=== PATIENT | female | born 1975 | race Two or more races ===

== ENCOUNTER 2021-01-05 06:25 | Inpatient (IN) | payer OTHER ==
[~2021-01-05] VITALS: Ht 152.4 cm; Wt 70.8 kg
[2021-01-05] MEDS ORDERED: MORPHINE SULFATE 4 MG/ML CPJ (NOT FOR IM USE) IV STA (06:51)
[2021-01-05 07:23] LABS: BASOPHILS % 0.9 % (0.0-2.0); EOSINOPHILS % 2.9 % (0.0-5.0); HEMOGLOBIN. 13.5 g/dL (12.0-16.0); LYMPHOCYTES % 36.4 % (20.0-50.0); MEAN CORPUSCULAR HEMOGLOBIN 26.4 pg (28.0-32.0); MEAN CORPUSCULAR VOLUME 82.4 fL (81.0-99.0); MEAN PLATELET VOLUME 8.2 fl (7.4-10.4); MONOCYTES % 10.4 % (2.0-8.0); NEUTROPHILS % 49.4 % (40.0-76.0); PLATELET 290 x1000/uL (130-400); RED BLOOD CELL COUNT 5.11 mill/uL (4.2-5.4); RED CELL DISTRIBUTION WIDTH 14.6 % (11.6-14.6)
[2021-01-05 07:35] LABS: CHLORIDE 101 mEq/L (98-107)
[2021-01-05] MEDS ORDERED: ASPIRIN 325MG EC TABLET PO ONE (10:30)
[2021-01-05] MEDS ORDERED: HYDROCODONE/ACETAMINOPHEN 5/325MG TABLET PO PRN (11:45)
[2021-01-05] MEDS ORDERED: MAGNESIUM/ALUMINUM HYDROXIDE/SIMETHICONE 30ML UDC PO PRN (11:45)
[2021-01-05] MEDS ORDERED: IPRATROPIUM/ALBUTEROL 0.5-3(2.5)MG/3ML NEB HHN PRN (11:45)
[2021-01-05] MEDS ORDERED: DIPHENHYDRAMINE 50MG/ML VIAL IV PRN (11:45)
[2021-01-05] MEDS ORDERED: CLONIDINE 0.1MG TABLET PO PRN (11:45)
[2021-01-05] MEDS ORDERED: DOCUSATE SODIUM 100MG CAPSULE PO PRN (11:45)
[2021-01-05] MEDS ORDERED: LORAZEPAM 2MG/ML CPJ IV PRN (11:45)
[2021-01-05] MEDS ORDERED: ACETAMINOPHEN 325MG TABLET PO PRN (11:45)
[2021-01-05] MEDS ORDERED: GUAIFENESIN 200MG/10ML SUGAR FREE UDC PO PRN (11:45)
[2021-01-05] MEDS ORDERED: MORPHINE SULFATE 2 MG/ML CPJ (NOT FOR IM USE) IV PRN (11:45)
[2021-01-05] MEDS ORDERED: ONDANSETRON HCL 4MG/2ML INJ IV PRN (11:45)
[2021-01-05] MEDS ORDERED: HYDRALAZINE 20MG/ML VIAL IV PRN (11:45)
[2021-01-05] MEDS: SODIUM CHLORIDE 0.9% INJ 3ML FLUSH IVF SCH ×2 (14:00→22:13)
[2021-01-05] MEDS ORDERED: ASPIRIN 325MG EC TABLET PO NR (14:45)
[2021-01-05] MEDS: ENOXAPARIN 40MG/0.4ML SYR SUBCUT SCH (16:20)
[2021-01-05 17:06] LABS: CREATINE KINASE 115 IU/L (26-192)
[2021-01-05 17:08] LABS: CREATINE KINASE MB FRACTION < 1.0 ng/mL (0.5-3.6)
[2021-01-05 23:04] VITALS: BP 131/94
[2021-01-05] MEDS ORDERED: VERA120C3 PO (23:30)
[2021-01-05] MEDS ORDERED: OMEP20TA2 PO (23:30)
[2021-01-05] MEDS ORDERED: CARV6.2548 PO (23:30)
[2021-01-05] MEDS ORDERED: IRBE300T17 PO (23:30)
[2021-01-05] MEDS ORDERED: CRES10 PO (23:30)
[2021-01-05] MEDS ORDERED: DIAZ5TAB4 PO (23:30)
[2021-01-05] MEDS ORDERED: ASPI-1497 PO (23:33)
[2021-01-06] VITALS (12 sets, daily range): BP systolic 109–148; BP diastolic 58–111
[2021-01-06] MEDS ORDERED: *PATIENT'S OWN MEDICATION STORAGE XX SCH (00:15)
[2021-01-06 00:23] LABS: CREATINE KINASE 99 IU/L (26-192)
[2021-01-06 00:24] LABS: CREATINE KINASE MB FRACTION < 1.0 ng/mL (0.5-3.6)
[2021-01-06] MEDS: SODIUM CHLORIDE 0.9% INJ 3ML FLUSH IVF SCH ×3 (05:11→22:00)
[2021-01-06] MEDS ORDERED: REGADENOSON 0.4 MG/5 ML IV ONE ×2 (08:15→09:13)
[2021-01-06 09:29] LABS: BASOPHILS % 0.8 % (0.0-2.0); EOSINOPHILS % 2.9 % (0.0-5.0); HEMATOCRIT. 43.9 % (36.0-48.0); HEMOGLOBIN. 14.2 g/dL (12.0-16.0); LYMPHOCYTES % 43.3 % (20.0-50.0); MEAN CORPUSCULAR HEMOGLOBIN 26.2 pg (28.0-32.0); MEAN CORPUSCULAR VOLUME 80.7 fL (81.0-99.0); MEAN PLATELET VOLUME 8.4 fl (7.4-10.4); MONOCYTES % 10.5 % (2.0-8.0); NEUTROPHILS % 42.5 % (40.0-76.0); PLATELET 293 x1000/uL (130-400); RED BLOOD CELL COUNT 5.44 mill/uL (4.2-5.4); RED CELL DISTRIBUTION WIDTH 14.3 % (11.6-14.6)
[2021-01-06 09:35] LABS: CHLORIDE 101 mEq/L (98-107)
[2021-01-06 09:43] LABS: LDL CHOLESTEROL 103 mg/dL (5-100)
[2021-01-06 09:44] LABS: HDL CHOLESTEROL 37 mg/dL (40-59); T4 FREE 0.89 ng/dL (0.76-1.46)
[2021-01-06] MEDS: ENOXAPARIN 40MG/0.4ML SYR SUBCUT SCH (12:46)
[2021-01-07] VITALS (8 sets, daily range): BP systolic 104–150; BP diastolic 73–114
[2021-01-07] MEDS: SODIUM CHLORIDE 0.9% INJ 3ML FLUSH IVF SCH (06:00)
[2021-01-07] MEDS: ENOXAPARIN 40MG/0.4ML SYR SUBCUT SCH (11:57)
== END 2021-01-07 15:12 | disposition home or self-care (01) | DRG 241 ==
LOC: ER 06:25 → EDBEDREQ 08:10 → MICUSO 10:18 → EDBEDREQ 10:29 → EDBEDREQTM 10:29 → 3WST 21:45
PROVIDERS: ADMIT Internal Medicine; ATTEND Internal Medicine
DX: K29.70 Gastritis, unspecified, without bleeding (principal); E78.5 Hyperlipidemia, unspecified; I10 Essential (primary) hypertension; R07.9 Chest pain, unspecified; J45.909 Unspecified asthma, uncomplicated; I25.2 Old myocardial infarction
CPT/HCPCS: 36415; 71045; 78452; 80053; 80061; 82550; 82553; 83036; 83880; 84439; 84443; 84484; 85025; 85379; 93005; 93306; 93970; 99285; A9500; J1200; J1650; J2270; J2405; J2785

== ENCOUNTER 2021-01-09 05:55 | Inpatient (IN) | payer OTHER ==
[~2021-01-09] VITALS: Ht 157.5 cm; Wt 68.0 kg
[~2021-01-09 05:55] MED LIST: ASPI-1497 PO; CARV6.2548 PO; CRES10 PO; DIAZ5TAB4 PO; IRBE300T17 PO; OMEP20TA2 PO; VERA120C3 PO
[2021-01-09] MEDS ORDERED: FAMOTIDINE 20MG/2ML VIAL IV STA (06:04)
[2021-01-09] MEDS ORDERED: ONDANSETRON HCL 4MG/2ML INJ IV STA (06:04)
[2021-01-09] MEDS ORDERED: MORPHINE SULFATE 4 MG/ML CPJ (NOT FOR IM USE) IV STA (06:04)
[2021-01-09] MEDS ORDERED: SODIUM CHLORIDE 0.9% 1,000 ML IV ONE (06:15)
[2021-01-09] MEDS ORDERED: MORPHINE SULFATE 2 MG/ML CPJ (NOT FOR IM USE) IV SCH (06:36)
[2021-01-09 06:42] LABS: HEMATOCRIT. 39.3 % (36.0-48.0); HEMOGLOBIN. 12.8 g/dL (12.0-16.0); MEAN CORPUSCULAR VOLUME 80.3 fL (81.0-99.0); MEAN PLATELET VOLUME 8.2 fl (7.4-10.4); MONOCYTES % 11.9 % (2.0-8.0); NEUTROPHILS % 50.1 % (40.0-76.0); PLATELET 283 x1000/uL (130-400); RED CELL DISTRIBUTION WIDTH 14.5 % (11.6-14.6)
[2021-01-09 06:49] LABS: CHLORIDE 101 mEq/L (98-107)
[2021-01-09 07:13] LABS: INR 1.1; PROTHROMBIN TIME 11.4 sec (9.6-11.0)
[2021-01-09 08:17] LABS: CLARITY URINE CLEAR (CLEAR); COLOR URINE YELLOW (YELLOW); KETONES URINE NEGATIVE (NEGATIVE); LEUKOCYTE ESTERASE URINE NEGATIVE (NEGATIVE); NITRITE URINE NEGATIVE (NEGATIVE); OCCULT BLOOD URINE NEGATIVE (NEGATIVE); PROTEIN URINE NEGATIVE (NEGATIVE); SPECIFIC GRAVITY URINE 1.009 (1.005-1.030)
[2021-01-09] MEDS ORDERED: ASPIRIN 325MG EC TABLET PO ONE (08:45)
[2021-01-09] MEDS ORDERED: ENOXAPARIN 60MG/0.6ML SYR SUBCUT ONE (10:30)
[2021-01-09] MEDS ORDERED: MORPHINE SULFATE 2 MG/ML CPJ (NOT FOR IM USE) IV PRN (15:15)
[2021-01-09] MEDS ORDERED: NITROGLYCERIN 0.4MG TABLET SL SL PRN (15:15)
[2021-01-09 15:28] LABS: CREATINE KINASE MB FRACTION 1.3 ng/mL (0.5-3.6)
[2021-01-09] MEDS ORDERED: NALOXONE HCL 0.4MG/ML VIAL IV PRN (15:30)
[2021-01-09] MEDS: AMLODIPINE 5MG TABLET PO SCH (16:32)
[2021-01-09] MEDS ORDERED: MAGNESIUM/ALUMINUM HYDROXIDE/SIMETHICONE 30ML UDC PO PRN (17:00)
[2021-01-09 18:38] LABS: *AMPHETAMINES SCREEN URINE NEGATIVE (NEGATIVE); *BARBITURATES SCREEN URINE NEGATIVE (NEGATIVE); *BENZODIAZEPINES SCREEN URINE NEGATIVE (NEGATIVE); *COCAINE SCREEN URINE NEGATIVE (NEGATIVE)
[2021-01-09 18:40] LABS: CANNABINOID URINE SCREEN NEGATIVE (NEGATIVE); METHADONE URINE SCREEN NEGATIVE (NEGATIVE); PHENCYCLIDINE URINE SCREEN NEGATIVE (NEGATIVE)
[2021-01-09 19:01] LABS: OPIATES URINE SCREEN PRESUMTIVE POSITIVE (NEGATIVE)
[2021-01-09] MEDS ORDERED: DOCUSATE SODIUM 100MG CAPSULE PO PRN (19:15)
[2021-01-09] MEDS ORDERED: ONDANSETRON HCL 4MG/2ML INJ IV PRN (19:15)
[2021-01-09] MEDS ORDERED: CLONIDINE 0.1MG TABLET PO PRN (19:15)
[2021-01-09] MEDS ORDERED: CALCIUM CARBONATE 500MG TABLET CHEW PO PRN (19:15)
[2021-01-09] MEDS ORDERED: LORAZEPAM 0.5MG TABLET PO PRN (19:15)
[2021-01-09] MEDS ORDERED: IPRATROPIUM/ALBUTEROL 0.5-3(2.5)MG/3ML NEB HHN PRN (19:15)
[2021-01-09] MEDS ORDERED: ACETAMINOPHEN 325MG TABLET PO PRN ×2 (19:15)
[2021-01-09] MEDS ORDERED: HYDROCODONE/ACETAMINOPHEN 5/325MG TABLET PO PRN (19:15)
[2021-01-09] MEDS ORDERED: POTASSIUM CHLORIDE 20MEQ TABLET SR PO NR (19:30)
[2021-01-09] MEDS: PANTOPRAZOLE SODIUM 40 MG/VIAL IV SCH (20:24)
[2021-01-09 22:43] VITALS: BP 128/84
[2021-01-09] MEDS: CARVEDILOL 3.125 MG TABLET PO SCH (23:28)
[2021-01-10] VITALS (11 sets, daily range): BP systolic 103–139; BP diastolic 60–99
[2021-01-10 06:41] LABS: BASOPHILS % 0.8 % (0.0-2.0); EOSINOPHILS % 3.5 % (0.0-5.0); HEMATOCRIT. 40.6 % (36.0-48.0); LYMPHOCYTES % 41.4 % (20.0-50.0); MEAN CORPUSCULAR HEMOGLOBIN 26.3 pg (28.0-32.0); MEAN CORPUSCULAR VOLUME 81.7 fL (81.0-99.0); MEAN PLATELET VOLUME 8.4 fl (7.4-10.4); MONOCYTES % 10.3 % (2.0-8.0); PLATELET 262 x1000/uL (130-400); RED BLOOD CELL COUNT 4.97 mill/uL (4.2-5.4); RED CELL DISTRIBUTION WIDTH 14.7 % (11.6-14.6)
[2021-01-10 06:52] LABS: CHLORIDE 106 mEq/L (98-107)
[2021-01-10] MEDS: AMLODIPINE 5MG TABLET PO SCH (08:22)
[2021-01-10] MEDS: PANTOPRAZOLE SODIUM 40 MG/VIAL IV SCH (08:22)
[2021-01-10] MEDS: CARVEDILOL 3.125 MG TABLET PO SCH (08:22)
[2021-01-10] MEDS ORDERED: ASPIRIN 81MG TABLET PO SCH (09:00)
[2021-01-10] MEDS ORDERED: PANT40TA51 MT (12:42)
== END 2021-01-10 15:35 | disposition home or self-care (01) | DRG 190 ==
LOC: ER 06:28 → MICUSO 10:16 → EDBEDREQ 10:17 → EDBEDREQTM 10:17 → 3WST 21:11
PROVIDERS: ADMIT Internal Medicine; ATTEND Internal Medicine
DX: I21.4 Non-ST elevation (NSTEMI) myocardial infarction (principal); I26.99 Other pulmonary embolism without acute cor pulmonale; D72.821 Monocytosis (symptomatic); E78.5 Hyperlipidemia, unspecified; I10 Essential (primary) hypertension; K21.9 Gastro-esophageal reflux disease without esophagitis; I25.10 Atherosclerotic heart disease of native coronary artery without angina pectoris; E87.6 Hypokalemia; I16.0 Hypertensive urgency; I51.4 Myocarditis, unspecified; I25.2 Old myocardial infarction; Z79.899 Other long term (current) drug therapy; Z79.82 Long term (current) use of aspirin
CPT/HCPCS: 36415; 80048; 80053; 80305; 81003; 82550; 82553; 83735; 84484; 85025; 85379; 85651; 86140; 93005; 99291; C9113; J1650; J2270; J2405; J3490; J7030